=== PATIENT | male | born 1980 | race Caucasian/White ===

== ENCOUNTER 2024-10-29 16:28 | Outpatient (CLI) | payer OTHER, SELFPAY | END 2024-10-29 16:29 | disposition home or self-care (01) | PROVIDERS: Visit Provider Family Medicine | DX: Z00.00 Encounter for general adult medical examination without abnormal findings (principal); K90.0 Celiac disease; R51.9 Headache, unspecified; G89.29 Other chronic pain; Z13.6 Encounter for screening for cardiovascular disorders; Z11.59 Encounter for screening for other viral diseases; Z13.21 Encounter for screening for nutritional disorder | CPT/HCPCS: 80053; 80061; 84146; 84443; 86140; 86803 ==